=== PATIENT | male | born 1965 | race Caucasian/White ===

== ENCOUNTER 2016-12-17 09:48 | Emergency (ER) | payer OTHER ==
[~2016-12-17] VITALS: Ht 177.8 cm; Wt 96.9 kg
[~2016-12-17 09:48] MED LIST: CYMBALTA60 MG PO; DILAUDID4 MG PO; HYDROCHLOROTHIA50 MG PO; NORVASC5 MG PO; TESTOSTERONE; TOPAMAX25 MG PO; WELLBUTRIN SR150 MG PO; XARELTO15 MG PO; ZANAFLEX4 MG PO
[2016-12-17] MEDS ORDERED: CLEOCIN300 MG PO (11:11)
[2016-12-17] MEDS ORDERED: TYLENOL WITH C1 EACH PO (11:11)
[2016-12-17] MEDS ORDERED: FENTANYL1 EAC1 TD (11:34)
[2016-12-17 11:37] VITALS: BP 138/74
== END 2016-12-17 11:39 | disposition home or self-care (01) ==
LOC: EME 09:48
DX: K08.89 Other specified disorders of teeth and supporting structures (principal); K05.10 Chronic gingivitis, plaque induced
CPT/HCPCS: 99281; 99283

== ENCOUNTER 2017-03-08 18:55 | Observation (INO) | payer OTHER ==
[~2017-03-08] VITALS: Ht 177.8 cm; Wt 94.0 kg
[~2017-03-08 18:55] MED LIST changes: +CLEOCIN300 MG PO; +FENTANYL1 EAC1 TD; +TYLENOL WITH C1 EACH PO
[2017-03-08 19:58] LABS: CHLORIDE 104 mEq/L (99-109); POTASSIUM 3.8 mEq/L (3.7-5.4); SODIUM 138 mEq/L (136-147)
[2017-03-08 20:00] LABS: GLUCOSE 91 mg/dL (70-99)
[2017-03-08 20:01] LABS: HEMATOCRIT 44.2 % (38.0-50.0); MCHC 35.1 G/DL (30.0-36.0); MCV 85.5 FL (86-99); PLATELET COUNT 258 K/uL (156-360); RED BLOOD COUNT 5.17 M/uL (4.00-5.50); WHITE BLOOD COUNT 10.6 K/uL (4.1-10.2)
[2017-03-08 20:02] LABS: ANION GAP 13 MEQ/L (2-14)
[2017-03-08 20:04] LABS: GFR ESTIMATE (CALCULATED) > 59 mL/min/
[2017-03-08 20:05] LABS: UREA NITROGEN (BUN) 18 mg/dL (9-23)
[2017-03-08 20:08] LABS: TROP-I INTERPRETATION NEGATIVE; TROPONIN-I < 0.01 ng/mL (0.0-0.30)
[2017-03-08 20:54] LABS: BASOPHIL COUNT 0.1 K/uL (0-0.1); EOSINOPHIL (%) 1.8 % (0-5); EOSINOPHIL COUNT 0.2 K/uL (0-0.3); IMMATURE GRANULOCYTE (%) 0.3 % (0.0-0.7); INSTRUMENT ABS NEUTROPHIL CT 6.7 K/uL; LYMPHOCYTE COUNT 2.8 K/uL (1.0-2.8); MONOCYTE (%) 5.6 % (3-12); MONOCYTE COUNT 0.6 K/uL (0-0.8); NEUTROPHIL (%) 64.7 % (45-76); NEUTROPHIL COUNT 6.7 K/uL (1.8-6.4)
[2017-03-08] MEDS ORDERED: TOPAMAX25 MG PO (20:58)
[2017-03-08] MEDS ORDERED: HYDROMORPHONE HC4 MG PO (21:00)
[2017-03-08 21:01] LABS: MAGNESIUM 2.2 mg/dL (1.3-2.7)
[2017-03-08] MEDS ORDERED: TESTOSTERO200 MG/12 IM (21:01)
[2017-03-08] MEDS ORDERED: ONCE DAILY1 EACH PO (21:02)
[2017-03-08] MEDS ORDERED: AMPHETAMINE SALT5 MG PO (21:02)
[2017-03-08] MEDS ORDERED: BUSPIRONE HCL10 MG PO (21:03)
[2017-03-08 21:04] LABS: TOTAL BILIRUBIN 1.2 mg/dL (0.0-1.0)
[2017-03-08 21:05] LABS: ALKALINE PHOSPHATASE 74 IU/L (3-129)
[2017-03-08 21:08] LABS: DIRECT BILIRUBIN 0.3 mg/dL (0.0-0.3)
[2017-03-08 21:47] VITALS: BP 131/75
[2017-03-09] VITALS: BP 111/67
[2017-03-09 02:47] LABS: TROP-I INTERPRETATION NEGATIVE; TROPONIN-I < 0.01 ng/mL (0.0-0.30)
[2017-03-09 03:23] LABS: HDL CHOLESTEROL 39 MG/DL (Desirable>=40); LDL CHOLESTEROL 82 mg/dL (Desirable<100); NON-HDL CHOLESTEROL 119 mg/dL (Desirable<160); TOTAL CHOLESTEROL 158 mg/dL (Desirable<200); TRIGLYCERIDES 187 MG/DL (Normal: <150)
[2017-03-09 04:00] VITALS: BP 92/50
[2017-03-09 07:45] VITALS: BP 99/56
[2017-03-09 08:35] LABS: ADD MIUA? NO; BILIRUBIN NEGATIVE; BLOOD NEGATIVE; COLOR AMBER ((YELLOW)); GLUCOSE (STRIP) NEGATIVE; KETONES NEGATIVE; LEUKOCYTES NEGATIVE; NITRITE NEGATIVE; PROTEIN (STRIP) NEGATIVE; SPECIFIC GRAVITY 1.035 (1.000-1.030); UROBILINOGEN 0.2 MG/DL (0.2-1.0)
[2017-03-09 09:12] LABS: TROP-I INTERPRETATION NEGATIVE; TROPONIN-I < 0.01 ng/mL (0.0-0.30)
[2017-03-09 09:19] LABS: UCUL ADDED? NO
[2017-03-09 09:30] LABS: BARBITUATES QUANT VALUE 0 NG/ML; BENZODIAZEPINES QUANT VALUE 0 NG/ML; BENZODIAZEPINES, URINE SCREEN Negative (200 ng/mL); MARIJUANA QUANT VALUE 0 NG/ML; PHENCYCLIDINE QUANT VALUE 0 NG/ML
[2017-03-09 10:50] VITALS: BP 123/72
[2017-03-09 16:33] VITALS: BP 142/80
[2017-03-09 19:26] LABS: TROP-I INTERPRETATION NEGATIVE; TROPONIN-I 0.01 ng/mL (0.0-0.30)
[2017-03-09 20:00] VITALS: BP 120/59
[2017-03-10 00:06] VITALS: BP 125/71
[2017-03-10 01:36] VITALS: BP 119/63
[2017-03-10 04:45] VITALS: BP 119/76
[2017-03-10 08:26] VITALS: BP 144/82
[2017-03-10 10:37] LABS: D-DIMER ELISA < 150.00 ng/mLDDU (<230)
[2017-03-10] MEDS ORDERED: ASPIRIN81 M2 PO (11:23)
[2017-03-10] MEDS ORDERED: NEXIUM40 MG PO (11:23)
[2017-03-10] MEDS ORDERED: NITROGLYCERIN0.4 MG SL (11:32)
[2017-03-10 11:59] VITALS: BP 142/82
== END 2017-03-10 14:33 | disposition home or self-care (01) ==
LOC: EME 18:55 → EDOF 20:31 → 5WEST 20:31 → ENRESERV 20:33 → 5WEST 21:27 → ENPENDDIS 03-10 → 5WEST 03-10 14:33
PROVIDERS: Hospitalist; Internal Medicine; Physician Assistant Medical
DX: R07.9 Chest pain, unspecified (principal); I25.10 Atherosclerotic heart disease of native coronary artery without angina pectoris; I10 Essential (primary) hypertension; E78.5 Hyperlipidemia, unspecified; J45.909 Unspecified asthma, uncomplicated; K21.9 Gastro-esophageal reflux disease without esophagitis; Z86.718 Personal history of other venous thrombosis and embolism; F41.9 Anxiety disorder, unspecified; F32.9 Major depressive disorder, single episode, unspecified; F42.9 Obsessive-compulsive disorder, unspecified; F90.9 Attention-deficit hyperactivity disorder, unspecified type; G89.29 Other chronic pain; M54.9 Dorsalgia, unspecified; M19.90 Unspecified osteoarthritis, unspecified site; Z87.442 Personal history of urinary calculi; E66.9 Obesity, unspecified; Z68.30 Body mass index [BMI] 30.0-30.9, adult; Z88.1 Allergy status to other antibiotic agents
CPT/HCPCS: 71020; 80048; 80061; 80076; 80306 90; 81003; 83735; 84484; 85025; 85027; 85379; 93005; 93306; 99281; 99284; G0378; J1650